=== PATIENT | male | born 1990 | race Caucasian/White ===

== ENCOUNTER 2024-05-20 10:50 | Emergency (ER) | payer OTHER, SELFPAY ==
--- NOTE | ~2024-05-20 | XR_ITS ---
HISTORY: cough x1 wk. Post-lat rib pain x yesterday COMPARISON: None TECHNIQUE: 3 views of the left ribs were performed along with a frontal view of the chest. FINDINGS: No acute displaced fracture is appreciated. The adjacent left lung is unremarkable. The cardiomediastinal silhouette is unremarkable. The lungs are clear. Bone mineralization is age-appropriate. IMPRESSION: No acute displaced rib fracture. The focal infiltrate or effusion Reviewed, dictated and finalized at location A. 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
[2024-05-20 10:57] VITALS: BP 147/92; PULSE 97; RESP 14; TEMP 36.1; O2SAT 100
--- NOTE | 2024-05-20 11:15 | ED.URI ---
HPI - URI/Sore Throat General Chief Complaint: Upper Respiratory Infection Stated Complaint: Left Side Pain Time Seen by Provider: 05/20/24 11:01 Source: patient and RN notes reviewed Mode of arrival: ambulatory Limitations: no limitations History of Present Illness HPI Narrative: Patient presents today complaining of left posterior lateral rib pain since yesterday that is intermittent in nature. Pain increases with coughing and deep breath. He has tried ibuprofen without relief. Patient has also had cough and URI symptoms x1 week. URI symptoms have resolved but he still does have a bit of a productive cough. Denies shortness of breath or fever. Related Data Allergies Allergy/AdvReac Type Severity Reaction Status Date / Time sulfamethoxazole Allergy Severe swelling Verified 01/20/19 15:56 of tongue, trimethoprim Allergy Severe swelling Verified 01/20/19 15:56 of tongue, Review of Systems Review of Systems: CONSTITUTIONAL: Denies body aches, fever, chills, or sweats. EYES: Denies visual changes, redness, or discharge. ENT: Denies rhinorrhea, congestion, sore throat, or otalgia. CARDIOVASCULAR: Denies chest pain, palpitations, or edema. RESPIRATORY: Denies dyspnea.+ cough, left rib pain GASTROINTESTINAL: Denies abdominal pain, nausea, vomiting, or diarrhea. GENITOURINARY: Denies dysuria or hematuria. SKIN: Denies rash, itching, or wounds. MUSCULOSKELETAL: Denies back pain, joint pain, or myalgia. NEUROLOGIC: Denies headache, numbness, tingling, or weakness. PSYCH: Denies depression or anxiety. PMFSH Comments At time of signature, I have reviewed and agree with nursing past medical, surgical, social and family history unless otherwise noted. Please see nursing chart for further information. There is no relevant family history pertinent to the presenting complaint Exam Narrative: GENERAL: Well-appearing, well-nourished, and in no acute distress. HEAD: Normocephalic, atraumatic. EYES: EOMI. No redness or drainage. Conjunctivae normal. ENT: Mucous membranes pink and moist. NECK: Normal AROM. CHEST: No respiratory distress. Clear to auscultation. Patient localizes discomfort to the left lateral lower ribs that extends posteriorly. No crepitus, step-off, ecchymosis or erythema noted. This area is nontender to palpation. HEART: Regular rate and rhythm. No murmur appreciated. Normal peripheral pulses. EXTREMITIES: Normal range of motion. No edema. SKIN: Warm, dry, no rash. Capillary refill normal. Normal skin turgor. NEURO: No focal deficits. Alert and oriented x3. Gait steady. PSYCH: Normal affect. No signs of depression or anxiety. Course Course Level of Care: Express Care Visit Vital Signs Vital signs: Vital Signs Temperature 97 F L 05/20/24 10:57 Pulse Rate 97 05/20/24 10:57 Respiratory Rate 14 05/20/24 10:57 Blood Pressure 147/92 H 05/20/24 10:57 Pulse Oximetry 100 05/20/24 10:57 Oxygen Delivery Room Air 05/20/24 10:57 Temperature 97 F L 05/20/24 10:57 Pulse Rate 97 05/20/24 10:57 Respiratory Rate 14 05/20/24 10:57 Blood Pressure 147/92 H 05/20/24 10:57 Pulse Oximetry 100 05/20/24 10:57 Oxygen Delivery Room Air 05/20/24 10:57 Reviewed MDM - URI/Sore Throat MDM Narrative Medical decision making narrative: Rib and chest x-ray negative. Patient's discomfort will be treated with a short course of prednisone and diclofenac. Anticipatory guidance given. Differential Diagnosis Differential diagnosis: Likely upper respiratory infection, viral infection, bronchitis and other (Pneumonia, rib fracture, pleurisy, muscle strain) Imaging Data Radiologist's impression: ITS Impressions Ribs w/Chest X-Ray 05/20/24 11:28 IMPRESSION: No acute displaced rib fracture. The focal infiltrate or effusion Critical Care Time Critical Care Time Critical Care Time: No Discharge Plan Discharge Clinical Impression: Acute chest wall pain, Bronchitis Patient Disposition: Home, Self-Care Condition: Stable Instructions: Acute Bronchitis (ED) Additional Instructions: Your x-ray is negative. Please take the prednisone and diclofenac as directed. Use a heating pad to help your discomfort as well. Follow-up with your PCP next week if symptoms are not improving. Your blood pressure was elevated above 120/80 today at Urgent Care. This puts you above the threshold for follow up. Please schedule a followup visit with your personal physician as soon as possible, for further evaluation and treatment. Even blood pressure exceeding 120/80 may indicate pre-hypertension. Patient Language: Scottish Prescriptions: New prednisone 50 mg tablet 50 mg PO DAILY 5 Days Qty: 5 0RF diclofenac sodium 50 mg tablet,delayed release (DR/EC) 50 mg PO TID PRN (Reason: pain) Qty: 20 0RF Follow-up/Referrals: PHYSICIAN,SENIOR STORAGE ADMINISTRATOR [Primary Care Provider] - Time of Disposition: 11:38
== END 2024-05-20 11:42 | disposition home or self-care (01) ==
PROVIDERS: Emergency Provider Nurse Practitioner
DX: J40 Bronchitis, not specified as acute or chronic (principal); R07.89 Other chest pain
CPT/HCPCS: 71101; 99213; G0463